=== PATIENT | male | born 1985 | race African-American/Black ===

== ENCOUNTER 2017-08-07 19:29 | Emergency (ER) | payer OTHER ==
[~2017-08-07] VITALS: Ht 188 cm; Wt 45.5 kg
[2017-08-07] MEDS ORDERED: LORATADINE 10 MG TABLET PO ONE (19:45)
[2017-08-07 20:16] VITALS: BP 146/89
== END 2017-08-07 20:23 | disposition home or self-care (01) ==
LOC: EMS 19:30
DX: L29.9 Pruritus, unspecified (principal); F17.210 Nicotine dependence, cigarettes, uncomplicated; Z91.013 Allergy to seafood
CPT/HCPCS: 99283; 99406